=== PATIENT | female | born 1990 | race Caucasian/White ===

== ENCOUNTER 2017-03-23 15:25 | Emergency (ER) | payer SELFPAY ==
[~2017-03-23 15:25] MED LIST: ALBUTEROL17 GM INH; B-121000 MC2 PO; BACTRIM DS TAB1 EACH PO; BACTROBAN15 GM TP; BENADRYL25 MG PO; CEFDINIR300 MG PO; CIPRO500 MG PO; CRANBERRY200 M1 PO; FISH OIL 11000 MG/CA PO; HAIR SKIN NAIL PO; IBUPROFEN600 M1 PO; IBUPROFEN800 M1 PO; IBUPROFEN800 MG PO; IRON1 TA1 PO; IRON325 M1 PO; IRON325 M3 PO; KEFLEX500 M4 PO; NO HOME MEDICATION; NORCO 5-325 TA1 EACH PO; PRENA1 CHEW TA1.4 M1 PO; PRENATAL CAPLE1 EACH PO; PRENATAL1 EACH; PRENATAL1 EACH PO; PRENATAL1 TAB PO; PROVENTIL HFA6.7 GM; PYRIDIUM200 MG PO; TYLENOL #31 TA1 PO; TYLENOL325 MG; VALTREX500 MG PO; VENTOLIN HFA18 G2 PO; ZITHROMAX250 M1 PO; [UNRECOGNIZED DRUG - OTHER] TOP
[2017-06-27] MEDS ORDERED: IBUPROFEN800 M1 PO (09:36)
[2017-06-27] MEDS ORDERED: CLEOCIN HCL300 M1 PO (09:39)
== END 2017-03-23 15:50 | disposition left against medical advice (07) ==
LOC: EDMED 15:25
DX: R21 Rash and other nonspecific skin eruption (principal); F17.200 Nicotine dependence, unspecified, uncomplicated